=== PATIENT | female | born 1960 | race Caucasian/White ===

== ENCOUNTER → 2016-11-05 | Outpatient (CLI) | payer BC, OTHER ==
[~2016-11-05] MED LIST: ALLEGRA180 MG PO; ASPIRIN; HCTZ PO; KLOR-CON; LOPRESSOR; LOPRESSOR PO; PRINIVIL20 M1 PO
--- NOTE | ~2016-11-05 | US6 ---
[facility] A Service of [facility] & [facility] RADIOLOGY TEXT RESULTS PATIENT: ROXANA DICKINSON LOCATION: [facility] : 56 UNIT #: [id number] AGE: [address]: Tony Dunham MD SEX: F ORDER DR: [id number] [facility]. [place], [place] [address] [id number] O MR#: [id number] Acc #: [id number] NAME: ROXANA DICKINSON : 1960 SEX: F STUDY DATE/TIME: 11/05/2016 10:49 UNIT: [facility] ROOM: STUDY DESCRIPTION: US Abdominal Limited Attending Physician: Tony Dunham M.D. Referring Physician: Tony Dunham M.D. Ordering Physician: Tony Dunham M.D. Primary Care Physician: Tony Dunham M.D. MEDICAL IMAGING REPORT This report is preliminary unless electronic signature is present EXAM Right upper quadrant ultrasound INDICATION Abnormal elevated liver function tests. Patient was also noted to have abnormal elevated liver function tests in November 2009 and on that study had some hepatomegaly and hepatic steatosis. TECHNIQUE Coe-scale and color Doppler sonographic images were obtained through the right upper quadrant. FINDINGS Images are of extremely poor quality. There is very limited visualization of the pancreas. Patient does appear to have diffuse hepatic steatosis. No obvious focal hepatic lesions are seen. There is no intra- or extrahepatic biliary dilatation. Main portal vein is patent. No hydronephrosis is seen. No obvious renal masses are identified. Patient is status post cholecystectomy. IMPRESSION Extremely technically limited examination with poor visualization of hepatic parenchyma in particular. Patient does appear to have diffuse hepatic steatosis as was identified on a prior study from November 2009. Dictated by... Radha Castillo M.D. THIS IS AN ELECTRONICALLY VERIFIED REPORT Radha Castillo M.D. at 11/06/2016 5:35 PM AFF/mjyvonne [facility] A Service of [facility] & [facility] RADIOLOGY TEXT RESULTS PATIENT: ROXANA DICKINSON LOCATION: [facility] #: [id number] : 56 UNIT #: [id number] AGE: [address]: Tony Dunham MD SEX: F ORDER DR: TD: 11/06/2016 10:34 JOB #: [id number] MEDICAL IMAGING REPORT Page 1 of 1 COPY
== END | disposition home or self-care (01) ==
LOC: CGUS 10:10
DX: R74.8 Abnormal levels of other serum enzymes (principal)
CPT/HCPCS: 76705